=== PATIENT | female | born 1990 | race African-American/Black ===

== ENCOUNTER 2020-07-12 19:45 | Emergency (ER) | payer MEDICAID, SELFPAY ==
[2020-07-12 19:50] VITALS: BP 115/68; PULSE 128; RESP 15; TEMP 37.4; O2SAT 100
--- NOTE | 2020-07-12 21:19 | ED.FEMALEGU ---
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 Time Seen by Provider: 07/12/20 20:57 Source: patient Mode of arrival: ambulatory Limitations: no limitations History of Present Illness HPI Narrative: This is a 29-year-old female that presents to the emergency department for vaginal irritation x3 days. Reports she recently started her. And was using scented tampons. She stopped using these, thinking she was having an allergic reaction to them. She was seen at another ED and diagnosed with a UTI and bacterial vaginosis. She has been taking the antibiotics for this without relief. Reports she had unprotected sex last week and is concerned for possible STD. Denies fever, abdominal pain, vomiting, or dysuria. Related Data Allergies Allergy/AdvReac Type Severity Reaction Status Date / Time No Known Allergies Allergy Unverified 07/12/20 20:44 Review of Systems Review of Systems: Narrative: CONSTITUTIONAL: Denies fever GASTROINTESTINAL: Denies abdominal pain, nausea, vomiting GENITOURINARY: Denies dysuria All systems reviewed & are unremarkable except as noted in HPI and below PMFSH Past Medical History Medical History (Updated 07/12/20 @ 22:34 by Yuliana Stanford PA-C) No active medical problems Surgical History Surgical History (Updated 07/12/20 @ 21:23 by Yuliana Stanford PA-C) History of section Social History Social History (Updated 07/12/20 @ 21:22 by Yuliana Stanford PA-C) Substance use: never Gender identity (if verbalized by the patient): Female Sexual Orientation (if Verbalized by the Patient): Straight or Heterosexual Exam Narrative: Exam Narrative: GENERAL: Well-appearing, well-nourished, and in no acute distress. HEAD: Normocephalic, atraumatic. EYES: EOMI. CHEST: Clear to auscultation. No respiratory distress. No wheezes rales or rhonchi HEART: Regular rate and rhythm. No murmur heard. Normal peripheral pulses. ABDOMEN: Soft, nontender, nondistended, normal active bowel sounds. EXTREMITIES: Normal range of motion. No edema. SKIN: Warm, dry, no rash. NEURO: No focal deficits. Alert and oriented x3. PSYCH: Normal mood and affect PELVIC: Labia majora with several ulcerated lesions on an erythematous base, tender to touch. Normal appearing cervix, no CMT. Small amount of white cervical discharge Course Vital Signs Vital signs: Vital Signs Temperature 99.4 F 07/12/20 19:50 Pulse Rate 128 H 07/12/20 19:50 Respiratory Rate 15 07/12/20 19:50 Blood Pressure 115/68 07/12/20 19:50 Pulse Oximetry 100 07/12/20 19:50 Temperature 99.4 F 07/12/20 19:50 Pulse Rate 128 H 07/12/20 19:50 Respiratory Rate 15 07/12/20 19:50 Blood Pressure 115/68 07/12/20 19:50 Pulse Oximetry 100 07/12/20 19:50 MDM - Female Genitourinary MDM Narrative Medical decision making narrative: Patient presents the emergency department for vulvovaginal irritation. Exam shows multiple ulcerated lesions on an erythematous base. 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 Swab was sent of these lesions. Chlamydia, gonorrhea, and genital culture was also sent. Trichomonas was negative. UA with white blood cells and leuk esterase, but also moderate squamous epithelial cells. This will go for culture. Patient was started on Macrobid by another facility and was instructed to finish this as prescribed. Patient would like to be presumptively treated for chlamydia and gonorrhea today. She will be started on antiviral. 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 She was given warnings to return to the ER Lab Data Attestation: I reviewed the patient's lab results. Labs: Lab Results 07/12/20 07/12/20 07/12/20 Range/Units 21:19 21:30 21:30 Urine Color Gena (Yellow) Urine Appearance Clear (Clear) Urine pH 6.0 (5.0-9.0) Ur Specific [place] 1.026 (1.001-1.035) Urine Protein 1+ H (Negative) mg/dL Urine Glucose (UA) N
[2020-07-12 21:29] LABS: Add Urine Microscopic? YES; Appearance Urine Clear (Clear); Bacteria Urine Trace /hpf; Bilirubin Urine Negative (Negative); Blood Urine 1+ (Negative); Color Urine Amber (Yellow); Glucose Urine UA Negative (Negative); Ketones Urine Trace mg/dL (Negative); Leukocyte Esterase Ur 2+ LEU/UL (Negative); Mucus Urine Few /lpf; Nitrate Urine Negative (Negative); Protein Urine 1+ mg/dL (Negative); Specific Grav Ur 1.026 (1.001-1.035); Squamous Epithelial Cell Urine Moderate /hpf (Few); WBC Urine 31-50 /hpf
[2020-07-12] MEDS: cefTRIAXone 250 MG VIAL IM (22:42)
[2020-07-12] MEDS: AZITHROMYCIN 250 MG TABLET 1000 MG PO (22:42)
--- NOTE | 2020-07-12 22:50 | PC.NURSE ---
pt unable to swallow pills, currently attempting to take a bite of sandwich and swallow inside of a bite.
[2020-07-12 23:03] VITALS: BP 98/59; PULSE 82; RESP 18; O2SAT 96
[2020-07-12 23:04] VITALS: BP 98/59; PULSE 82; RESP 18; O2SAT 96
== END 2020-07-12 23:05 | disposition home or self-care (01) ==
PROVIDERS: Physician Assistant; Emergency Provider Emergency Medicine
DX: A60.04 Herpesviral vulvovaginitis (principal)
CPT/HCPCS: 81001; 81025; 87070; 87086; 87140; 87147; 87255; 87491; 87591; 87808; 96372; 99284; A9270; J0696